=== PATIENT | female | born 1995 | race Caucasian/White ===

== ENCOUNTER 2017-01-05 22:04 | Emergency (ER) | payer OTHER ==
[2017-01-05 22:57] LABS: URINE BILIRUBIN NEGATIVE (NEGATIVE); URINE BLOOD NEGATIVE (NEGATIVE); URINE GLUCOSE (UA) NEGATIVE (NEGATIVE); URINE LEUKOCYTE ESTERASE TRACE (NEGATIVE); URINE NITRITE NEGATIVE (NEGATIVE); URINE PROTEIN TRACE (NEGATIVE); URINE UROBILINOGEN NORMAL (0-1 mg/dl)
[2017-01-05 22:58] LABS: URINE APPEARANCE SL CLOUDY; URINE COLOR DARK YELLOW
[2017-01-05] MEDS ORDERED: MAALOX/LIDO2%VISC/SIMETHICONE 40 ML BOT ONE (23:01)
[2017-01-05 23:10] LABS: HCG,QUALITATIVE URINE NEGATIVE
[2017-01-05 23:12] LABS: URINE RBC 0 /hpf
[2017-01-05 23:13] LABS: URINE BACTERIA 1+; URINE MUCUS 1+; URINE WBC 0-2 /hpf
[2017-01-05 23:13] LABS: ABSOLUTE NEUTROPHIL COUNT 6.9 K/mm3 (1.8-7.7); BASO % 0.3 % (0.2-1.0); EOS # 0.1 (0.0-0.5); EOS % 0.5 % (0.9-2.9); HEMATOCRIT 43.5 % (37.0-47.0); HEMOGLOBIN 14.9 gm/l (12.0-16.0); IMM NEUT% 0.3 % (0-1); LYMPH % 34.5 % (15-45); MEAN CELL VOLUME 87.2 fl (81.0-99.0); MEAN CORPUSCULAR HEMOGLOBIN 29.9 pg (27.0-31.0); MEAN CORPUSCULAR HGB CONC 34.3 g/dl (33.0-37.0); MEAN PLATELET VOLUME 11.1 fl (7.4-10.4); MONO # 0.6 (0.0-0.8); MONO % 5.4 % (4-12); PLATELET COUNT 258 K/mm3 (130-400)
[2017-01-05 23:34] LABS: ALB/GLOB RATIO 1.3 (>1.0); ALBUMIN 4.4 gm/dL (3.5-5.7); ALT/SGPT 14 U/L (7-52); BLOOD UREA NITROGEN 10 mg/dL (7-25); BUN/CREATININE RATIO 17 (6-20); CALCIUM 9.7 mg/dL (8.6-10.3); LIPASE 4 U/L (11-82)
--- NOTE | 2017-01-06 07:31 | US ---
Name: KODY EDEN Exam: Gallbladder Ultrasound Comparison: None Clinical History: Right upper quadrant pain with nausea Findings: Ultrasound of the gallbladder was performed. Gallbladder is normal size at 7.9 cm. Wall thickness is normal 2 mm. There is no sludge or stones. There is no pericholecystic fluid. Ultrasound Farr sign is negative. Common bile duct 3 mm. Impression: Normal Gallbladder Ultrasound Note: [facility]
== END 2017-01-06 00:36 | disposition home or self-care (01) ==
LOC: ED 22:04
DX: R10.13 Epigastric pain (principal)
CPT/HCPCS: 83690; 81025; 85025; 80053; 81001; 76705; 99284; 99283; A9270

== ENCOUNTER 2017-03-14 23:39 | Emergency (ER) | payer OTHER ==
[2017-03-15] MEDS ORDERED: IBUPROFEN 800 MG TABLET ONE (01:22)
--- NOTE | 2017-03-15 07:58 | RAD ---
Exam: Three-view left hand COMPARISON: None INDICATION: Left lateral wrist and hand pain for 3 days after lifting. FINDINGS: PA, lateral and oblique views of the left hand were obtained. Overall normal bone mineralization. No apparent soft tissue swelling. Alignment is normal. No fracture is identified. IMPRESSION: Negative left hand.
== END 2017-03-15 02:13 | disposition home or self-care (01) ==
LOC: ED 23:39
DX: S66.912A Strain of unspecified muscle, fascia and tendon at wrist and hand level, left hand, initial encounter (principal); G51.0 Bell's palsy; X50.0XXA Overexertion from strenuous movement or load, initial encounter; Y93.F2 Activity, caregiving, lifting; Y92.230 Patient room in hospital as the place of occurrence of the external cause; Y99.0 Civilian activity done for income or pay
CPT/HCPCS: 73130; 99283 ×2; A9270